=== PATIENT | male | born 1965 | race Caucasian/White ===

== ENCOUNTER 2018-07-06 18:42 | Observation (INO) | payer BC ==
[~2018-07-06] VITALS: Ht 193 cm; Wt 94.5 kg
[2018-07-06] MEDS ORDERED: ONDANSETRON PF 4 MG/2 ML VIAL. IV ONE (19:00)
--- NOTE | 2018-07-06 19:03 | PHYS DOC ---
Adult General Chief Complaint Chief Complaint: SEIZURE HPI HPI Patient is a 52 year old man who presents with new-onset seizure Patient is unclear as to the events leading up to the seizure activity Patient was shopping at [employer] at 6:12 PM, when he was witnesses to have onset of generalized seizure activity with an uncontrolled fall to the ground hitting his head. Patient bit his tongue. He now complains of headache. He's amnestic to events. He's had no prior seizures. He notes no weakness or numbness. States allergy to IVP dye. He takes medication which he doesn't remember at this time. As per , the patient was diagnosed with a right frontal mass 2 weeks ago. He had an MRI 2 months ago and had a repeat MRI 2 weeks ago noting a stable right frontal mass. 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 Since then , he's been relatively well until today. His doctors are in [place]. He is here on business. As per Dr. Banda the patient's PCP in [place] ( : office#) Dr. Banda states patient had encephalitis in high school with coma and had procedure on the right side of his brain. He has sleep apnea, paranoia, Tremors, Depression, tinnitus Recent MRIs 45 days ago and 15 days ago showed right frontal lobe mass with T2 flair right posterolateral frontal lobe. DDx- focal cerebritis, glioma recommend Brain MRI with contrast in 4-6 weeks. Review of Systems Review of Systems Constitutional: Denies fever or chills Eyes: Denies change in visual acuity, redness, or eye pain HENT: Denies nasal congestion or sore throat Respiratory: Denies cough or shortness of breath Cardiovascular: Denies chest pain or palpitations GI: Denies abdominal pain, nausea, vomiting, bloody stools or diarrhea : Denies dysuria or hematuria Musculoskeletal: Denies back pain or joint pain Integument: Denies rash or skin lesions Neurologic: With headache and seizure,no focal weakness or sensory changes Endocrine: Denies polyuria or polydipsia All other systems were reviewed and found to be within normal limits, except as documented in this note. Current Medications Current Medications Current Medications Medications (Trade) Dose Ordered Sig/Reji Start Time Stop Time Status Last Admin Dose Admin Diphtheria/ Tetanus/Acell Pertussis (Boostrix) 0.5 ml ONCE ONCE 07/06/18 19:15 07/06/18 19:16 DC 07/06/18 19:45 0.5 ML Levetiracetam 1000 mg/Dextrose 110 ml @ 440 mls/hr 1X ONCE 07/06/18 20:00 07/06/18 20:14 DC 07/06/18 20:50 440 MLS/HR Ondansetron HCl (Zofran) 4 mg 1X ONCE 07/06/18 19:00 07/06/18 19:09 DC 07/06/18 19:44 4 MG Allergies Allergies Allergies Coded Allergies Type Severity Reaction Last Updated Verified Iodinated Contrast- Oral and IV Dye Allergy Intermediate 07/06/18 Yes Physical Exam Physical Exam Constitutional: Well developed, well nourished, no acute distress, non-toxic appearance. HENT: Normocephalic, with left parietal contusion, bilateral external ears normal, oropharynx moist, right tongue contusion, no oral exudates, nose normal. Eyes: PERRLA, EOMI, conjunctiva normal, no discharge. Neck: Normal range of motion, no tenderness, supple, no stridor. Cardiovascular:Heart rate regular rhythm, no murmur Lungs & Thorax: Bilateral breath sounds clear to auscultation Abdomen: Bowel sounds normal, soft, no tenderness, no masses, no pulsatile masses. Skin: Warm, dry, no erythema, no rash. with small left pinna superficial laceration Back: No tenderness, no CVA tenderness. Extremities: No tenderness, no cyanosis, no clubbing, ROM intact, no edema. Neurologic: Alert and oriented X 3, CN II-XII intact, normal motor function, normal sensory function, no focal deficits noted. Psychologic: Affect normal, judgement normal, mood normal. Current Patient Data Vital Signs Vital Signs Date Time Temp Pulse Resp B/P (MAP) Pulse Ox O2 Delivery O2 Flow Rate FiO2 07/06/18 21:00 68 24 100 07/06/18 18:42 98.0 118/70 (86) Room Air 98.0 Lab Values Laboratory Tests Test 07/06/18 18:50 White Blood Count 6.6 x10^3/uL (4.0-11.0) Red Blood Count 4.66 x10^6/uL (4.30-5.70) Hemoglobin 15.6 g/dL (13.0-17.5) Hematocrit 44.9 % (39.0-53.0) Mean Corpuscular Volume 96 fL (79-100) Mean Corpuscular Hemoglobin 34 pg (25-35) Mean Corpuscular Hemoglobin Concent 35 g/dL (31-37) Red Cell Distribution Width 13.4 % (11.5-14.5) Platelet Count 243 x10^3/uL (140-400) Neutrophils (%) (Auto) 45 % (31-73) Lymphocytes (%) (Auto) 43 % (24-48) Monocytes (%) (Auto) 9 % (0-9) Eosinophils (%) (Auto) 2 % (0-3) Basophils (%) (Auto) 1 % (0-3) Neutrophils # (Auto) 3.0 x10^3uL (1.8-7.7) Lymphocytes # (Auto) 2.8 x10^3/uL (1.0-4.8) Monocytes # (Auto) 0.6 x10^3/uL (0.0-1.1) Eosinophils # (Auto) 0.1 x10^3/uL (0.0-0.7) Basophils # (Auto) 0.1 x10^3/uL (0.0-0.2) Sodium Level 141 mmol/L (136-145) Potassium Level 3.2 mmol/L (3.5-5.1) L Chloride Level 103 mmol/L (98-107) Carbon Dioxide Level 19 mmol/L (21-32) L Anion Gap 19 (6-14) H Blood Urea Nitrogen 19 mg/dL (8-26) Creatinine 1.5 mg/dL (0.7-1.3) H Estimated GFR (Cockcroft-Gault) 49.0 BUN/Creatinine Ratio 13 (6-20) Glucose Level 87 mg/dL (70-99) Calcium Level 9.7 mg/dL (8.5-10.1) Magnesium Level 2.3 mg/dL (1.8-2.4) Total Bilirubin 0.5 mg/dL (0.2-1.0) Aspartate Amino Transferase (AST) 17 U/L (15-37) Alanine Aminotransferase (ALT) 35 U/L (16-63) Alkaline Phosphatase 83 U/L (46-116) Troponin I Quantitative < 0.017 ng/mL (0.000-0.055) Total Protein 8.0 g/dL (6.4-8.2) Albumin 4.2 g/dL (3.4-5.0) Albumin/Globulin Ratio 1.1 (1.0-1.7) Ethyl Alcohol Level < 10 mg/dL (0-10) Laboratory Tests 07/06/18 18:50 Laboratory Tests 07/06/18 18:50 EKG EKG ECG 18:48 Normal sinus rhythm at 96 with normal axis, normal intervals and without any ST T-wave changes suggestive of ischemia Radiology/Procedures Radiology/Procedures [facility] [address] [place] [address] IMAGING REPORT Signed PATIENT: KADEN VALERIO ACCOUNT: [id number] : 1965 LOCATION: ER AGE: 52 SEX: M EXAM STATUS: REG ER ORD. PHYSICIAN: RONA DON MD REASON: new onset seizure PROCEDURE: CT HEAD AND CERVICAL SPINE WO EXAM: 1. CT HEAD WITHOUT CONTRAST. 2. CT CERVICAL SPINE WITHOUT CONTRAST. HISTORY: Seizure, fall, head and neck injury. TECHNIQUE: Computed tomography of the head and cervical spine was performed without intravenous contrast. COMPARISON: None. FINDINGS: There is no intracranial hemorrhage. Mendoza-white differentiation is preserved. The ventricles are normal in size and position. There are small mucus retention cysts bilaterally in the maxillary sinuses. There is mild mucosal thickening in the ethmoid air cells. The orbits are unremarkable. The temporal bones are unremarkable. The calvarium reveals no suspicious lesions. There are anterior cervical discectomy and fusion changes at C6-7. Cervical alignment is maintained. There is mild osteoarthritis at C1-2. No fractures are identified. Degenerative disc disease is moderate at C5-6 and mild at C4-5. There is no prevertebral soft tissue swelling. At C2-3, there is mild right uncovertebral osteoarthritis. There is no significant stenosis. At C3-4, there is a small posterior disc bulge. There is mild bilateral uncovertebral osteoarthritis. Right neural foraminal stenosis is moderate. At C4-5, there is a small posterior disc bulge. Uncovertebral osteoarthritis is mild on the left greater than right. Facet osteoarthritis is mild to moderate on the right. Neural foraminal stenosis is mild bilaterally. At C5-6, there is a moderate posterior disc-osteophyte complex. Central canal stenosis is mild. Bilateral lateral recess stenosis is mild to moderate. Uncovertebral osteoarthritis is moderate bilaterally. Neural foraminal stenosis is mild to moderate on the left greater than right. At C6-7, there is no significant stenosis. IMPRESSION: 1. No acute intracranial findings. 2. No cervical fracture or acute malalignment. 3. C6-7 anterior cervical discectomy and fusion. 4. Central canal stenosis is mild at C5-C6. Neural foraminal stenosis is moderate bilaterally at C5-6 and mild to moderate elsewhere as above. *One or more of the following individualized dose reduction techniques were utilized for this examination: 1. Automated exposure control. 2. Adjustment of the mA and/or kV according to patient size. 3. Use of iterative reconstruction technique. Electronically signed by: Darío Mandujano MD (07/06/2018 8:50 PM) [facility] Course & Med Decision Making Course & Med Decision Making Pertinent Labs and Imaging studies reviewed. (See chart for details) Emergency Department Course Patient presents with new onset seizure DDx-Seizure, CVA, ICH, withdrawal Patient was stable in the ED without recurrent seizure. Head CT scan was unremarkable. CT C-spine showed DJD, no fracture. C-collar was removed. ECG and troponin showed no evidence of ACS or arrhythmia. Labs remarkable for mild hypokalemia. Patient was given Keppra IV. 20:[address] Rogel who agrees with admission 20:[address] Canada who agrees to consult on the patient. Recommends repeat dose of Keppra in AM. Dragon Disclaimer Dragon Disclaimer This electronic medical record was generated, in whole or in part, using a voice recognition dictation system. Departure Departure Impression: Primary Impression: New onset seizure Additional Impressions: Frontal mass of brain Injury of tongue Superficial injury of left ear Disposition: ADMITTED INPATIENT Admitting Physician: Sukh Rogel Condition: STABLE Problem Qualifiers RONA DON MD Jul 06, 2018 19:03
[2018-07-06 19:07] LABS: BASO # 0.1 x10^3/uL (0.0-0.2); BASO % 1 % (0-3); EOS # 0.1 x10^3/uL (0.0-0.7); EOS % 2 % (0-3); HEMATOCRIT 44.9 % (39.0-53.0); HEMOGLOBIN 15.6 g/dL (13.0-17.5); LYMPH # 2.8 x10^3/uL (1.0-4.8); LYMPH % 43 % (24-48); MEAN CORPUSCULAR HEMOGLOBIN 34 pg (25-35); MEAN CORPUSCULAR HGB CONC 35 g/dL (31-37); MEAN CORPUSCULAR VOLUME 96 fL (79-100); MONO # 0.6 x10^3/uL (0.0-1.1); MONO % 9 % (0-9); NEUT % 45 % (31-73); PLATELET COUNT 243 x10^3/uL (140-400); RED BLOOD COUNT 4.66 x10^6/uL (4.30-5.70); RED CELL DISTRIBUTION WIDTH 13.4 % (11.5-14.5); WHITE BLOOD COUNT 6.6 x10^3/uL (4.0-11.0)
[2018-07-06] MEDS ORDERED: DIPHTH,PERTUSS(ACELL),TET TOX 0.5 ML DISP.SYRIN. VAX IM ONE (19:15)
[2018-07-06 19:17] LABS: CALCIUM 9.7 mg/dL (8.5-10.1); CREATININE 1.5 mg/dL (0.7-1.3); POTASSIUM 3.2 mmol/L (3.5-5.1)
[2018-07-06 19:23] LABS: ALBUMIN 4.2 g/dL (3.4-5.0); ALBUMIN/GLOBULIN RATIO 1.1 (1.0-1.7); MAGNESIUM 2.3 mg/dL (1.8-2.4); TOTAL BILIRUBIN 0.5 mg/dL (0.2-1.0)
--- NOTE | 2018-07-06 19:59 | EKG ---
[facility] [address] [place] [address] Test Date: 2018-07-06 Test Time: 18:48:22 Pat Name: KADEN VALERIO Department: Room: Gender: M [employer]: : 1965 Requested By: RONA DON Order Number: [id number] Reading MD: Liu Lynn MD Measurements Intervals [place] Rate: 96 P: 44 OK: 146 QRS: 45 QRSD: 92 T: 49 QT: 364 QTc: 467 Interpretive Statements SINUS RHYTHM Electronically Signed On 07-11-2018 8:27:06 CDT by Liu Lynn MD
[2018-07-06] MEDS ORDERED: levETIRAcetam 1,000 MG in IV DEXTROSE 5% 100ML 100 ML IV ONE (20:00)
--- NOTE | 2018-07-06 20:53 | RAD ---
EXAM: 1. CT HEAD WITHOUT CONTRAST. 2. CT CERVICAL SPINE WITHOUT CONTRAST. HISTORY: Seizure, fall, head and neck injury. TECHNIQUE: Computed tomography of the head and cervical spine was performed without intravenous contrast. COMPARISON: None. FINDINGS: There is no intracranial hemorrhage. Mendoza-white differentiation is preserved. The ventricles are normal in size and position. There are small mucus retention cysts bilaterally in the maxillary sinuses. There is mild mucosal thickening in the ethmoid air cells. The orbits are unremarkable. The temporal bones are unremarkable. The calvarium reveals no suspicious lesions. There are anterior cervical discectomy and fusion changes at C6-7. Cervical alignment is maintained. There is mild osteoarthritis at C1-2. No fractures are identified. Degenerative disc disease is moderate at C5-6 and mild at C4-5. There is no prevertebral soft tissue swelling. At C2-3, there is mild right uncovertebral osteoarthritis. There is no significant stenosis. At C3-4, there is a small posterior disc bulge. There is mild bilateral uncovertebral osteoarthritis. Right neural foraminal stenosis is moderate. At C4-5, there is a small posterior disc bulge. Uncovertebral osteoarthritis is mild on the left greater than right. Facet osteoarthritis is mild to moderate on the right. Neural foraminal stenosis is mild bilaterally. At C5-6, there is a moderate posterior disc-osteophyte complex. Central canal stenosis is mild. Bilateral lateral recess stenosis is mild to moderate. Uncovertebral osteoarthritis is moderate bilaterally. Neural foraminal stenosis is mild to moderate on the left greater than right. At C6-7, there is no significant stenosis. IMPRESSION: 1. No acute intracranial findings. 2. No cervical fracture or acute malalignment. 3. C6-7 anterior cervical discectomy and fusion. 4. Central canal stenosis is mild at C5-C6. Neural foraminal stenosis is moderate bilaterally at C5-6 and mild to moderate elsewhere as above. *One or more of the following individualized dose reduction techniques were utilized for this examination: 1. Automated exposure control. 2. Adjustment of the mA and/or kV according to patient size. 3. Use of iterative reconstruction technique. Electronically signed by: Darío Mandujano MD (07/06/2018 8:50 PM) [facility]
[2018-07-07 01:08] VITALS: BP 126/82
[2018-07-07] MEDS ORDERED: ZOLP5TAB PO (01:55)
[2018-07-07] MEDS ORDERED: ALPR0.5T PO (01:55)
[2018-07-07] MEDS ORDERED: OMEG1CAP6 PO (01:55)
[2018-07-07 03:00] VITALS: BP 129/80
[2018-07-07 06:47] LABS: AMPHETAMINE/METHAMPHETAMINE NEG (NEG); BARBITURATES NEG (NEG); BENZODIAZEPINES NEG (NEG); CANNABINOIDS NEG (NEG); COCAINE NEG (NEG); METHADONE NEG (NEG); OPIATES NEG (NEG); PHENCYCLIDINE NEG (NEG)
[2018-07-07 07:00] VITALS: BP 98/64
[2018-07-07] MEDS ORDERED: ACETAMINOPHEN 325 MG TABLET. PO PRN (07:45)
[2018-07-07 07:48] LABS: BILIRUBIN,URINE NEGATIVE (NEG); CLARITY,URINE CLOUDY; COLOR,URINE YELLOW; NITRITE,URINE NEGATIVE (NEG); PH,URINE 5.5; PROTEIN,URINE NEGATIVE (NEG-TRACE); UROBILINOGEN,URINE 0.2 mg/dL (0.2 mg/dL)
[2018-07-07 08:08] LABS: SQUAMOUS EPITHELIAL CELL,UR OCC /LPF
[2018-07-07 08:09] LABS: AMORPHOUS SEDIMENT,UR PRESENT /HPF; BACTERIA,URINE 0 /HPF (0-FEW); RBC,URINE 0 /HPF (0-2)
[2018-07-07] MEDS ORDERED: levETIRAcetam 1,000 MG in IV DEXTROSE 5% 100ML 100 ML IV SCH (09:00)
[2018-07-07] MEDS ORDERED: levETIRAcetam 500 MG TABLET PO SCH ×2 (10:00→21:00)
[2018-07-07] MEDS ORDERED: POTASSIUM CHLORIDE 20 MEQ TABLET.ER. PO ONE (10:30)
[2018-07-07 11:42] VITALS: BP 115/65
--- NOTE | 2018-07-07 11:49 | SSS ---
ADMIT DATE: 07/07/2018 SHORT STAY SUMMARY CHIEF COMPLAINT: Seizure. HISTORY OF PRESENT ILLNESS: The patient is a pleasant 52-year-old male who had encephalitis when he was 16 years old. Ever since then, he has had abnormal imaging of his brain. He thinks he has a scar on the right frontotemporal lobe. He had a seizure yesterday evening. He was at [facility] when this happened. It was witnessed. It was generalized clonic-tonic seizure. He bit his tongue. He had associated headache afterwards. I discussed the case with the ER physician. We have admitted the patient. We are consulting Neurology. The patient is doing better this morning. He is on the medical floor. We will start him on [facility]. He now wants to go back to [place], he is from out of town, and wants to see the neurologist there. I am going to have the nurse call the neurologist, Dr. Canada, to see if he is okay with that. PAST MEDICAL HISTORY: Encephalitis. ALLERGIES: IODINE. FAMILY HISTORY: Hypertension. 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 He does not drink, smoke or take drugs. He is . MEDICATIONS: Reviewed. Please refer to the MRAD. REVIEW OF SYSTEMS: GENERAL: No history of weight change, weakness or fevers. SKIN: No bruising, hair changes or rashes. EYES: No blurred, double or loss of vision. NOSE AND THROAT: No history of nosebleeds, hoarseness or sore throat. HEART: No history of palpitations, chest pain or shortness of breath on exertion. LUNGS: Denies cough, hemoptysis, wheezing or shortness of breath. GASTROINTESTINAL: Denies changes in appetite, nausea, vomiting, diarrhea or constipation. GENITOURINARY: No history of frequency, urgency, hesitancy or nocturia. NEUROLOGIC: Denies history of numbness, tingling, tremor or weakness. PSYCHIATRIC: No history of panic, anxiety or depression. ENDOCRINE: No history of heat or cold intolerance, polyuria or polydipsia. EXTREMITIES: Denies muscle weakness, joint pain, pain on walking or stiffness. PHYSICAL EXAMINATION: VITAL SIGNS: Temperature 97, pulse 80, respirations 20 and blood pressure 140/90. GENERAL: He is alert, cooperative. HEART: Normal S1, S2. LUNGS: Clear. ABDOMEN: Soft. EXTREMITIES: No edema. SKIN: No rash. ENDOCRINE: No thyromegaly. LYMPHATICS: No cervical nodes. HEMATOPOIETIC: No bruising. LABORATORY DATA: Hematology is normal. Electrolytes are normal, other than low potassium of 3.2 and a creatinine of 1.5. Drug screen negative. ASSESSMENT AND PLAN: Seizures in a middle-aged male who has a previous history of encephalitis and actually has had some type of brain procedure back when he was a child and he does have some scarring on his brain. I suspect this is secondary from the scars. The patient was admitted. We consulted Neurology. As previously stated, the patient wants to go. I gave him a prescription for Keppra. We are going to see if Dr. Canada is okay with him going and seeing his neurologist in [place]. DISPOSITION: Home. ACTIVITY: As tolerated. DIET: Low sodium. MEDICATIONS: Please see the MRAD. TOTAL TIME: 32 minutes. KARRI FONTAINE DO DR: FRANCK/elisabeth JOB#: [id number] / [id number]
== END 2018-07-07 12:09 | disposition home or self-care (01) ==
LOC: ER 18:42 → 5 SOUTH 21:45
PROVIDERS: ADMIT Internal Medicine; ATTEND Internal Medicine
DX: R56.9 Unspecified convulsions (principal); G04.90 Encephalitis and encephalomyelitis, unspecified; F32.9 Major depressive disorder, single episode, unspecified; G47.30 Sleep apnea, unspecified; F22 Delusional disorders; G93.9 Disorder of brain, unspecified; M48.02 Spinal stenosis, cervical region; Z82.49 Family history of ischemic heart disease and other diseases of the circulatory system; Z86.61 Personal history of infections of the central nervous system; Z91.041 Radiographic dye allergy status; Z23 Encounter for immunization
CPT/HCPCS: 36415; 70450; 72125; 80053; 80307; 81001; 83735; 84146; 84484; 85025; 90471; 90715; 93005; 96365; 96375; 99285; G0378; G0480; J1953; J2060; J2405; G0379; G0479